=== PATIENT | female | born 1935 | race Native Hawaiian/Other Pacific Islander ===

== ENCOUNTER 2023-02-11 16:40 | Emergency (ER) | payer OTHER ==
[~2023-02-11] VITALS: Ht 142.2 cm; Wt 55.8 kg
[2023-02-11 16:40] VITALS: BP 164/106; TEMP 97.5
[2023-02-11 17:38] LABS: PLATELET COUNT 312 K/uL (152-353)
[2023-02-11 17:54] LABS: POTASSIUM 4.2 mmol/L (3.6-5.2)
[2023-02-12] MEDS ORDERED: AMIODARONE HYD100 MG PO (08:45)
[2023-02-12] MEDS ORDERED: BAYER CHEWABLE81 MG PO (08:46)
[2023-02-12] MEDS ORDERED: AMIT10TA21 PO (08:46)
[2023-02-12] MEDS ORDERED: BUSPIRONE5 MG PO (08:47)
[2023-02-12] MEDS ORDERED: CLOP75TA2 PO (08:48)
[2023-02-12] MEDS ORDERED: B-121000 MCG SL (08:49)
[2023-02-12] MEDS ORDERED: CORRECTOL100 MG PO (08:49)
[2023-02-12] MEDS ORDERED: DULOXETINE HCL20 MG PO (08:50)
[2023-02-12] MEDS ORDERED: HYDR5TAB9 PO (08:51)
[2023-02-12] MEDS ORDERED: MELATONIN3 M1 PO (08:52)
[2023-02-12] MEDS ORDERED: ONDA4TAB3 PO (08:53)
[2023-02-12] MEDS ORDERED: FAMOTIDINE MAXI20 MG PO (08:55)
[2023-02-12] MEDS ORDERED: CALC12504 PO (08:55)
[2023-02-12] MEDS ORDERED: SENNA LAX8.6 MG PO (08:56)
[2023-02-12] MEDS ORDERED: PRAVASTATIN10 MG PO (08:56)
[2023-02-12] MEDS ORDERED: [UNRECOGNIZED DRUG - OTHER] OPTH (08:58)
[2023-02-12] MEDS ORDERED: SYSTANE OVERNIG0.3 % OPTH (09:00)
== END 2023-02-11 18:35 ==
LOC: ED 16:40
PROVIDERS: Family Medicine
DX: R45.851 Suicidal ideations (principal); I49.9 Cardiac arrhythmia, unspecified; Z02.79 Encounter for issue of other medical certificate
CPT/HCPCS: 80053; 81002; 85007; 85027; 87635; 93005; 99283; U0003